=== PATIENT | female | born 1965 | race Caucasian/White ===

== ENCOUNTER 2020-10-12 14:55 | Day surgery (SDC) | payer OTHER ==
[2020-10-12] MEDS ORDERED: Depo-Medrol 40 MG/ML IM ONE (14:56)
[2020-10-12] MEDS ORDERED: BUPIVACAINE 0.5% VIAL IJ ONE (14:56)
[2020-10-12] MEDS ORDERED: Lactated Ringers 1,000 ML IV ONE (15:58)
[2020-10-12] MEDS ORDERED: DIPRIVAN 200 MG/20 ML IV ONE (16:59)
--- NOTE | 2020-10-12 20:35 | XRAY ---
Indication: Intercostal nerve block. Intraoperative fluoroscopy provided for 24 seconds. 3 digital spot image submitted for interpretation demonstrates needle tip projecting over the presumed 8 and 9 intercostal nerves posterior laterally. Correlate with intraoperative findings/report.
--- NOTE | 2020-10-13 08:34 | XRAY ---
24 seconds of fluoroscopy was used in surgery for a left T8-T9 nerve block.
== END 2020-10-12 17:30 | disposition home or self-care (01) ==
LOC: SDC-PAIN 14:55
PROVIDERS: ATTEND Psychiatry & Neurology Pain Medicine
DX: R07.81 Pleurodynia (principal); Z79.899 Other long term (current) drug therapy
CPT/HCPCS: 64420; 64421; 72020; 77002; J1030; J2704

== ENCOUNTER 2020-11-23 15:52 | Day surgery (SDC) | payer OTHER ==
[2020-11-23] MEDS ORDERED: Depo-Medrol 40 MG/ML IM ONE (15:53)
[2020-11-23] MEDS ORDERED: BUPIVACAINE 0.5% VIAL IJ ONE (15:53)
[2020-11-23] MEDS ORDERED: Lactated Ringers 1,000 ML IV ONE (16:43)
[2020-11-23] MEDS ORDERED: DIPRIVAN 200 MG/20 ML IV ONE (18:30)
--- NOTE | 2020-11-23 21:30 | XRAY ---
Indication: Left intercostal nerve block. Intraoperative fluoroscopy provided for 24 seconds. 3 digital spot image submitted for interpretation demonstrates lateral needle tip projecting adjacent to lateral arc of unknown rib. Correlate with intraoperative findings/report.
--- NOTE | 2020-11-24 09:54 | XRAY ---
24 seconds of fluoroscopy was used in surgery for a left intercostal nerve block.
== END 2020-11-23 19:30 | disposition home or self-care (01) ==
LOC: SDC-PAIN 15:52
PROVIDERS: ATTEND Psychiatry & Neurology Pain Medicine
DX: R07.81 Pleurodynia (principal); Z79.899 Other long term (current) drug therapy
CPT/HCPCS: 64420; 64421; 71100; 77002; J1030; J2704